=== PATIENT | female | born 1960 | race Caucasian/White ===

== ENCOUNTER 2016-09-24 08:58 | Emergency (ER) | payer OTHER ==
[~2016-09-24] VITALS: Ht 157.5 cm; Wt 59.1 kg
[~2016-09-24 08:58] MED LIST: IBUP-1827 PO
[2016-09-24 09:00] VITALS: BP 147/90; PULSE 85; RESP 16; O2SAT 97
--- NOTE | 2016-09-24 09:05 | ED.REPORT ---
HPI-Abd Pain F 40 and Over Date of Service Sep 24, 2016 ED Provider: Lito Pimentel DO 56 year old post-menopausal female presents to the ER accompanied by her complaining of waxing and waning RLQ abdominal pain onset last night. She reports that the pain also radiates into her right flank, and right low back. Associated symptoms include nausea and vomiting. Patient denies abnormal vaginal bleeding. Patient was seen at urgent care today where her urine tested positive for blood, and she was subsequently referred to the ER out of concern for kidney stones. Nursing Notes Stated Complaint: POSSIBLE KIDNEY STONES/ABDOMINAL PAIN Chief Complaint: Female Abdominal Pain Nursing Notes Reviewed: Yes Allergies: Coded Allergies: No Known Allergies (Unverified , 04/05/16) Scheduled PRN Ibuprofen (Ibuprofen) 600 Mg Tablet 600 MG PO QID PRN PRN For Pain Ibuprofen (Ibuprofen) 800 Mg Tablet 800 MG PO TID PRN PRN For Pain Ondansetron ODT (Zofran ODT) 4 Mg Tablet 4 MG PO Q4H PRN PRN For Nausea Oxycodone (Roxicodone) 5 Mg Tablet 2.5-5 MG PO QID PRN PRN For Pain General Time Seen by MD: 09:05 Chief Complaint Abdominal pain (RLQ) Hx Obtained From: Patient Arrived By: Walk-in Sudden in Onset?: No Onset Occurred: Yesterday Symptom Duration: Since onset Location: : RLQ Quality: Painful, Stabbing Severity: Current: Pain level 9 out of 10 Severity: Maximum: Pain level 9 out of 10 Associated with: Reports: Back pain, Nausea, Vomiting, Denies: Vaginal bleeding Past Medical History Past Medical History High cholesterol Past Surgical History Tendon repair right ankle Hernia repair Reports: Tonsillectomy Reports: Tubal ligation Smoking History Former Smoker Social History Alcohol Use: In recovery Drug Use: Denies drug use Other Social History: Good social support, Ambulatory Status Independent Review of Systems Constitutional: Denies: Chills, Fever Respiratory: Denies: Non-productive cough, Shortness of breath GI: Reports: Abdominal pain (RLQ), Nausea, Vomiting, Denies: Diarrhea Female: Reports: Flank pain (Right), Denies: , Vaginal bleeding - abnl Musculoskeletal: Reports: Back pain (Low) Complete sys rev & neg: except as marked. Physical Exam Vital Signs Vital Signs (First) Date Time Temp Pulse Resp B/P Pulse Ox O2 Delivery O2 Flow Rate FiO2 09/24/16 09:00 36.2 85 16 147/90 97 Room Air Initial VS: Reviewed Head / Eyes: Atraumatic, Normocephalic Neck: Supple, Non-tender, Full range of motion Extremities: Vascular intact, Neuro intact, No swelling, No tenderness Skin: Warm, Dry, No cyanosis Neurologic: Alert, Oriented, Nonfocal General/Constitutional: Awake, Alert, Well developed, Well nourished Respiratory / Chest: Breath sounds NL, Breath sounds = bilat, No respiratory distress, No rales, No rhonchi, No wheezing, No stridor Cardiovascular: Heart rate NL, Regular rhythm, Heart sounds NL, Peripheral circulation NL 2+ DP pulses Abdomen: Soft, No guarding, No rebound, No distention Tenderness/Guarding/Rebound: Positive: Tender RLQ... (Moderate) Back: Inspection NL, Non-tender Flank / Spine / Paraspinal: Positive: Flank tender R Interpretation & Diagnostics Lab Results Interpretation Result Diagram: 09/24/16 0910 09/24/16 0910 Test 09/24/16 09:10 White Blood Count 10.7th/mm3 (3.8-10.1) Red Blood Count 4.71mil/mm3 (3.90-5.20) Hemoglobin 13.7g/dL (12.0-15.6) Hematocrit 41.1% (35.0-46.0) Mean Corpuscular Volume 87.3fL (81-100) Mean Corpuscular Hemoglobin 29.1pg (27.0-35.0) Mean Corpuscular Hemoglobin Concent 33.3% (32.0-37.0) Red Cell Distribution Width 13.2% (12.3-15.4) Platelet Count 221bil/L (150-400) Neutrophils (%) (Auto) 85.4% (40-74) Lymphocytes (%) (Auto) 8.5% (14-46) Monocytes (%) (Auto) 5.6% (4-12) Eosinophils (%) (Auto) 0.1% (0-5) Basophils (%) (Auto) 0.2% (0-3) Sodium Level 138mEq/L (134-144) Potassium Level 3.8mEq/L (3.5-5.2) Chloride Level 98mEq/L (97-108) Carbon Dioxide Level 25mmol/L (18-29) Blood Urea Nitrogen 13mg/dL (6-24) Creatinine 0.74mg/dL (0.57-1.00) Estimat Glomerular Filtration Rate 117mL/min (>59) Glucose Level 133mg/dL (60-99) Calcium Level 9.5mg/dL (8.5-10.1) Magnesium Level 2.0mg/dL (1.6-2.6) Total Bilirubin 0.3mg/dL (0.0-1.2) Aspartate Amino Transf (AST/SGOT) 29U/L (0-50) Alanine Aminotransferase (ALT/SGPT) 29U/L (0-32) Alkaline Phosphatase 64U/L (25-150) Total Protein 7.4g/dL (6.4-8.4) Albumin 4.7g/dL (3.4-5.0) Lipase 34U/L (13-60) CT Abd / Pelvis Interpretation IMPRESSION: 1. 4 x 3 x 3 mm mid right ureteral stone causes mild right hydronephrosis and perinephric inflammatory fat stranding. 2. 2 additional 3 mm nonobstructing inferior left renal stones. 3. Scant descending colon diverticulosis. Dictated by: Christopher Guthrie M.D. on 09/24/2016 at 9:59 Approved by: Christopher Guthrie M.D. on 09/24/2016 at 10:10 Study type: Abdominal CT no contrast Interpretation / Wet Read by: Interpret - Radiologist Re-Eval/Medical Decision Med Decision/Clinical Course Findings consistent with kidney stone, do not suspect infection, patient will be discharged on pain control and will follow up with urology. Return precautions given. Re-Evaluation/Progress : Time of Eval: 10:15 Patient Status: Pain improved Re-Evaluation/Progress Note: Patient is now 2/10 down from 04/17 in severity. Discussed lab and radiology results and plan to discharge. Patient is amenable to the plan. Return precautions given. All other questions addressed. Counseled Regarding: Diagnosis, Lab results, Need for follow-up, When/why to return to ED Discharge & Departure Primary Impression: Kidney stone Disposition: Home Discharge Condition All VS Reviewed: Yes Condition: Stable Patient Instructions: Nephrolithiasis (DC) Additional Instructions: You have a kidney stone. Take 800mg ibuprofen three times daily for pain. Take half of an oxycodone every 4-6 hours as needed for severe pain. Do not drive or consume alcohol while taking oxycodone. Use Zofran as directed for nausea. Use a urine strainer. Follow-up with the urologist at the number provided to arrange an appointment for next week. Referrals: NOPCP (PCP) Evie Attestation Portions of this note were transcribed by Oziel Kinsey. I, Dr. Pimentel, personally performed the history, physical exam and medical decision-making; I reviewed and confirmed the accuracy of the information in the transcribed note. Signed by: Evie Medina, 09/24/2016 and 10:18 Lito Pimentel DO Sep 24, 2016 09:05 OZIEL KINSEY Sep 24, 2016 09:15
[2016-09-24] MEDS ORDERED: Ketorolac 15 mg/mL Inj IVPUSH ONE (09:25)
[2016-09-24 09:27] LABS: BASOPHILS % (AUTO) 0.2 % (0-3); MONOCYTES % (AUTO) 5.6 % (4-12); Mean Corpuscular Hemoglobin 29.1 pg (27.0-35.0)
[2016-09-24 09:35] LABS: EOSINOPHILS % (AUTO) 0.1 % (0-5); Mean Corpuscular Volume 87.3 fL (81-100); NEUTROPHILS % (AUTO) 85.4 % (40-74); Platelet Count 221 bil/L (150-400)
[2016-09-24] MEDS ORDERED: Ondansetron 2 mg/mL 2 mL Inj IVPUSH PRN (09:55)
[2016-09-24 10:09] VITALS: BP 117/66; PULSE 77; RESP 16; O2SAT 99
--- NOTE | 2016-09-24 10:10 | DRSVH ---
PROCEDURE: CT KUB ([id number]) INDICATIONS: 56 year-old female with right flank pain since last night. TECHNIQUE: Noncontrast 5 mm thick sections acquired from the diaphragms to the symphysis. 5 mm thick coronal an d sagittal reformats were then performed. For radiation dose reduction, the following was used: aut omated exposure control, adjustment of mA and/or kV according to patient size. COMPARISON: None. FINDINGS: Image quality: Excellent. Lung bases: Lung bases are clear. Heart size is normal. Urinary system: Both kidneys are normal in size, with mild right hydronephrosis and perinephric infl ammatory fat stranding. Pair of 3 mm inferior left renal nonobstructing stones is present. No right renal stones. On axial image 44, 4 x 3 x 3 mm right mid ureteral stone is present. Both ureters appea r non-dilated throughout their expected courses. Bladder wall thickness is normal; no calcified blad nicole stones. Other solid organs: Liver and spleen are normal in size. Gallbladder wall thickness is normal. Cisneros creas is normal in contours. No adrenal nodules. Peritoneum and bowel: Unenhanced bowel loops demonstrate normal wall thickness and caliber. There i s scant descending colon diverticulosis. No free fluid or air. Nodes and vessels: No retroperitoneal or mesenteric adenopathy by size criteria. Aorta and inferior vena cava are normal in caliber, with mild aortoiliac atherosclerosis. Abdominal wall: No ventral hernias. Pelvis: No free pelvic fluid. No inguinal hernias or adenopathy. Uterus and ovaries are normal in size. Bones: No suspicious bony lesions. No vertebral body compression fractures. IMPRESSION: 1. 4 x 3 x 3 mm mid right ureteral stone causes mild right hydronephrosis and perinephric inflammator y fat stranding. 2. 2 additional 3 mm nonobstructing inferior left renal stones. 3. Scant descending colon diverticulosis. Dictated by: Christopher Guthrie M.D. on 09/24/2016 at 9:59 Approved by: Christopher Guthrie M.D. on 09/24/2016 at 10:10
[2016-09-24] MEDS ORDERED: ONDA4TAB9 PO (10:22)
[2016-09-24] MEDS ORDERED: OXYC-474 PO (10:22)
[2016-09-24] MEDS ORDERED: IBUP800T28 PO (10:22)
[2016-09-24 10:49] VITALS: BP 117/66; PULSE 82; RESP 13; O2SAT 97
== END 2016-09-24 10:49 | disposition home or self-care (01) ==
LOC: SED 08:58
DX: N20.1 Calculus of ureter (principal); R11.2 Nausea with vomiting, unspecified; Z87.891 Personal history of nicotine dependence
CPT/HCPCS: 36415; 74176; 80053; 83690; 83735; 85025; 96374; 96375; 99285; J1885; J2270; J2405